=== PATIENT | male | born 1950 | race Caucasian/White ===

== ENCOUNTER 2017-10-24 12:27 | Emergency (ER) | payer MEDICARE, OTHER ==
[2017-10-24] MEDS: DIPHENHYDRAMINE 25 MG CAP PO (15:17)
[2017-10-24] MEDS: CEPHALEXIN 500 MG CAP PO (15:17)
[2017-10-24] MEDS: DEXAMETHASONE 4 MG TAB PO (15:27)
== END 2017-10-24 16:04 | disposition home or self-care (01) ==
LOC: FTE 16:04
DX: R21 Rash and other nonspecific skin eruption (principal)
CPT/HCPCS: 99284

== ENCOUNTER 2017-11-03 12:13 | Emergency (ER) | payer MEDICARE, OTHER | END 2017-11-03 13:57 | disposition home or self-care (01) | LOC: FTE 12:13 | DX: L03.115 Cellulitis of right lower limb (principal); L03.116 Cellulitis of left lower limb | CPT/HCPCS: 99283 ==

== ENCOUNTER 2018-06-13 11:57 | Emergency (ER) | payer MEDICARE, OTHER ==
[2018-06-13] MEDS: PROPOFOL 200 MG INJ IV (12:30)
[2018-06-13] MEDS: HYDROmorphONE 2 MG/ML SYG IV (12:31)
[2018-06-13] MEDS: ONDANSETRON 4 MG INJ IV ×2 (12:31→15:25)
[2018-06-13 14:11] LABS: ANION GAP 6 (5-13); BLOOD UREA NITROGEN 19 mg/dl (7-20); CALCIUM 9.1 mg/dl (8.4-10.2); CARBON DIOXIDE 29 mmol/L (21-31); CHLORIDE 104 mmol/L (97-110); CREATININE 0.65 mg/dl (0.61-1.24); Estimated GFR > 60 mL/min (>60); GLUCOSE 117 mg/dl (70-220); POTASSIUM 4.3 mmol/L (3.5-5.1); SODIUM 139 mmol/L (135-144)
[2018-06-13] MEDS: IOHEXOL 350MG/ML 50 ML BTL (14:34)
[2018-06-13] MEDS: IOHEXOL 100 ML (14:34)
[2018-06-13] MEDS: SOD CHLORIDE 0.9% 100 ML (14:34)
[2018-06-13] MEDS: HYDROmorphONE 1 MG/ML SYG IV (15:26)
[2018-06-13] MEDS: NICARDipine HCL 30 MG CAPSULE PO (18:40)
== END 2018-06-13 19:12 | disposition home or self-care (01) ==
LOC: E/R 11:57
DX: S52.91XA Unspecified fracture of right forearm, initial encounter for closed fracture (principal); S52.201A Unspecified fracture of shaft of right ulna, initial encounter for closed fracture; I71.2 Thoracic aortic aneurysm, without rupture; F17.210 Nicotine dependence, cigarettes, uncomplicated; R51 Headache; V13.4XXA Pedal cycle driver injured in collision with car, pick-up truck or van in traffic accident, initial encounter
CPT/HCPCS: 25675; 36415; 70450; 71045; 71275; 73110-RT; 75635; 80048; 94770; 96374; 96376; 99285-25